=== PATIENT | female | born 1990 | race Hispanic/Latino ===

== ENCOUNTER 2019-11-22 23:09 | Emergency (ER) | payer SELFPAY | END 2019-11-22 23:20 | LOC: ERS 23:09 | DX: S50.812A Abrasion of left forearm, initial encounter (principal); J45.909 Unspecified asthma, uncomplicated; V89.2XXA Person injured in unspecified motor-vehicle accident, traffic, initial encounter; W22.10XA Striking against or struck by unspecified automobile airbag, initial encounter | CPT/HCPCS: 99283 ==

== ENCOUNTER 2021-02-05 15:17 | Outpatient (CLI) | payer BC | END 2021-02-05 15:18 | disposition home or self-care (01) | LOC: CTENTCT 15:17 | PROVIDERS: ATTEND Otolaryngology Plastic Surgery within the Head & Neck | DX: J32.8 Other chronic sinusitis (principal) | CPT/HCPCS: 70486 ==

== ENCOUNTER 2021-03-06 07:01 | Outpatient (CLI) | payer BC ==
[2021-03-06 11:02] LABS: BHCG - Serum Negative (NEGATIVE); Pregs Control Background? CLEAR/WHITE (CLR/WHITE); Pregs Control Bar Appear? YES (CONTROL BAR)
[2021-03-06 19:39] LABS: SARS-CoV-2 PCR by NAA Not Detected (NotDetected)
== END 2021-03-06 07:02 | disposition home or self-care (01) ==
LOC: LABBT 07:01
PROVIDERS: ATTEND Otolaryngology Plastic Surgery within the Head & Neck
DX: Z01.812 Encounter for preprocedural laboratory examination (principal); J01.80 Other acute sinusitis; J34.2 Deviated nasal septum; J34.3 Hypertrophy of nasal turbinates; J34.89 Other specified disorders of nose and nasal sinuses; Z20.822 Contact with and (suspected) exposure to COVID-19
CPT/HCPCS: 84703; 85014; U0003; U0005